=== PATIENT | male | born 1990 | race American Indian/Alaskan Native ===

== ENCOUNTER 2017-09-24 00:32 | Emergency (ER) | payer SELFPAY ==
[2017-09-24 02:52] LABS: Bacteria,Urine 1+ /HPF (Negative); Bilirubin,Urine NEG (Negative); Blood,Urine NEG (Negative); Ketones,Urine NEG (Negative); Leukocyte Esterase,Urine LG (Negative); Mucus,Urine 1+ /HPF; Nitrite,Urine NEG (Negative)
[2017-09-24 03:00] LABS: WBC,Urine > 182.0 /HPF (0.0-6.0)
[2017-09-24] MEDS ORDERED: ROCEPHIN IM ONE (05:08)
[2017-09-24] MEDS ORDERED: XYLOCAINE 1% MPF 5 mL INFILTRATI ONE (05:08)
[2017-09-24] MEDS ORDERED: ZITHROMAX PO ONE (05:08)
--- NOTE | 2017-09-24 05:13 | Emergency Department Report ---
ED Male HPI - General Chief complaint: Urogenital-Male Stated complaint: PAINFUL URINATION Time Seen by Provider: 09/24/17 04:58 Source: patient Mode of arrival: Ambulatory Limitations: No Limitations - History of Present Illness Initial comments: This is a 26 y.o. male presenting with dysuria and discharge x 3 days. He is having white discharge and increased discomfort while urinating. Admits to possibly being exposed to sexually transmitted infections. Denies testicular, low abdominal, and back pain. MD Complaint: penile discharge, dysuria -: days(s) (3) Location: penis Radiation: none Severity: moderate Quality: burning Consistency: intermittent Improves with: urination Worsens with: urination discharge, dysuria. denies: swelling, mass, rash, urinary retention, blood in urine, fever, nausea/vomiting, incontinence - Related Data Sexually active: Yes (unprotected intercourse periodically) Previous Rx's Medication Instructions Recorded Last Taken Type Ciprofloxacin HCl [Cipro] 250 mg PO BID 3 Days #6 tablet 09/24/17 Unknown Rx Phenazopyridine [Pyridium] 200 mg PO TID 2 Days #6 tab 09/24/17 Unknown Rx Allergies Allergy/AdvReac Type Severity Reaction Status Date / Time No Known Allergies Allergy Unverified 09/24/17 01:58 ED Review of Systems ROS: Stated complaint: PAINFUL URINATION Other details as noted in HPI Constitutional: no symptoms reported, see HPI. denies: chills, diaphoresis, fever, malaise, weakness Respiratory: no symptoms reported, see HPI. denies: cough, orthopnea, shortness of breath, SOB with exertion, SOB at rest, stridor, wheezing Cardiovascular: as per HPI. denies: chest pain, palpitations, dyspnea on exertion, orthopnea, edema, syncope, paroxysmal nocturnal dyspnea Gastrointestinal: as per HPI. denies: abdominal pain, nausea, vomiting, diarrhea, constipation, hematemesis, melena, hematochezia Genitourinary: as per HPI, dysuria, discharge. denies: urgency, frequency, hematuria, testicular pain, testicular mass Musculoskeletal: as per HPI. denies: back pain, joint swelling, arthralgia, myalgia Skin: as per HPI. denies: rash, lesions, change in color, change in hair/nails , pruritus Psychiatric: as per HPI. denies: anxiety, depression, auditory hallucinations, visual hallucinations, homicidal thoughts, suicidal thoughts ED Past Medical Hx - Past Medical History Previous Medical History?: No - Social History Smoking Status: Never Smoker Substance Use Type: None - Medications Home Medications: Home Medications Medication Instructions Recorded Confirmed Last Taken Type Ciprofloxacin HCl [Cipro] 250 mg PO BID 3 Days #6 tablet 09/24/17 Unknown Rx Phenazopyridine [Pyridium] 200 mg PO TID 2 Days #6 tab 09/24/17 Unknown Rx ED Physical Exam - General Limitations: No Limitations General appearance: alert, in no apparent distress - Respiratory Respiratory exam: Present: normal lung sounds bilaterally. Absent: respiratory distress, wheezes, rales, rhonchi, stridor, chest wall tenderness, accessory muscle use, decreased breath sounds, prolonged expiratory - Cardiovascular Cardiovascular Exam: Present: regular rate, normal rhythm, normal heart sounds. Absent: bradycardia, tachycardia, irregular rhythm, systolic murmur, diastolic murmur, rubs, gallop, clicks, JVD, S3, S4 - GI/Abdominal GI/Abdominal exam: Present: soft, normal bowel sounds. Absent: distended, tenderness, guarding, rebound, rigid, diminished bowel sounds, hyperactive bowel sounds, hypoactive bowel sounds, organomegaly, mass, bruit, pulsatile mass , hernia - exam: Present: normal inspection, urethral discharge, circumcision. Absent: testicular tenderness, scrotal swelling, vertical testicular lie External exam: Present: normal external exam. Absent: erythema, swelling, lesions, lacerations, ecchymosis, bleeding - Psychiatric Psychiatric exam: Present: normal affect, normal mood. Absent: depressed, agitated, anxious, flat affect, manic, homicidal ideation, suicidal ideation - Skin Skin exam: Present: warm, dry, intact, normal color. Absent: rash, cyanosis, diaphoretic, erythema, urticaria, vesicles, petechiae, pallor, abrasion, ecchymosis ED Course Vital Signs 09/24/17 02:00 Temperature 98.5 F Pulse Rate 98 H Respiratory 20 Rate Blood Pressure 137/81 O2 Sat by Pulse 99 Oximetry Critical care attestation.: If time is entered above; I have spent that time in minutes in the direct care of this critically ill patient, excluding procedure time. ED Disposition Clinical Impression: Exposure to STD UTI (urinary tract infection) Qualifiers: Urinary tract infection type: acute cystitis Hematuria presence: without hematuria Qualified Code(s): N30.00 - Acute cystitis without hematuria Disposition: TO HOME OR SELFCARE Is pt being admited?: No Does the pt Need Aspirin: No Condition: Stable Instructions: Sexually Transmitted Diseases (ED), Safe Sex (ED), Urinary Tract Infection in Men (ED) Additional Instructions: Call for lab results in 3-5 days. Follow-up with Health Department or primary care physician. Prescriptions: Ciprofloxacin HCl [Cipro] 250 mg PO BID 3 Days #6 tablet Phenazopyridine [Pyridium] 200 mg PO TID 2 Days #6 tab Referrals: JAYASHREE BINGHAM MD [Primary Care Provider] - 3-5 Days [facility] [Outside] - 3-5 Days [facility] [Outside] - 3-5 Days Forms: Work/School Release Form(ED) Time of Disposition: 06:01 Print Language: TOGOLESE
[2017-09-24 06:24] VITALS: BP 134/79
== END 2017-09-24 06:24 | disposition home or self-care (01) ==
LOC: ED 00:32
DX: N39.0 Urinary tract infection, site not specified (principal)
CPT/HCPCS: 81001; 87591; 96372; 99283; J0696